=== PATIENT | male | born 1945 | race Caucasian/White ===

== ENCOUNTER 2024-05-09 11:12 | Outpatient (OUT) | payer MEDICARE, OTHER, SELFPAY ==
--- NOTE | 2024-05-09 11:22 | XR_ITS ---
The [address] [address] Patient Name: ALAINA BRADY MRN: [id number] date: 1945 Sex: M Assigned Patient Location: [facility] Current Patient Location: Accession/Order Number: [id number] Exam Date: 05/09/2024 11:25 Report Date: 05/10/2024 12:39 At the request of: STEPHANIE CORDERO Procedure: XR chest 2V PROCEDURE: XR chest 2V DATE: 05/09/2024 10:25 AM CDT COMPARISONS: 09/16/2021 CLINICAL INDICATION: 78 years Male Chronic Cough, Cigarette Nicotine Dependence FINDINGS: The cardiomediastinal silhouette and pulmonary vasculature are within normal limits. There are some scattered subcentimeter granuloma, stable. There is moderate increase interstitial markings throughout all lung friend probably representing chronic lung changes which have progressed slightly since previous exam. There is no evidence of pleural effusion or pneumothorax. There is mild to moderate thoracic degenerative spondylosis, stable. XR/XR chest 2V IMPRESSION: Findings consistent with chronic lung changes slightly more prominent than 09/16/2021. Electronically authenticated by: REUBEN OSEI Date: 05/10/2024 12:39
== END 2024-05-09 11:13 | disposition home or self-care (01) ==
LOC: RAD 11:15
PROVIDERS: PCP Family Medicine; Visit Provider Family Medicine
DX: F17.219 Nicotine dependence, cigarettes, with unspecified nicotine-induced disorders (principal); R05.3 Chronic cough; R91.8 Other nonspecific abnormal finding of lung field
CPT/HCPCS: 71046